=== PATIENT | male | born 1945 | race Caucasian/White ===

== ENCOUNTER 2017-06-15 16:56 | Emergency (ER) | payer MEDICARE, OTHER ==
[2014-08-17 08:10] VITALS: BMI 25.8
[~2017-06-15 16:56] MED LIST: HYDROCODONE-APA1 TAB PO; SAW PALMETTO450 MG PO
== END 2017-06-15 21:34 | disposition home or self-care (01) ==
LOC: D.ER 16:56
DX: S61.304A Unspecified open wound of right ring finger with damage to nail, initial encounter (principal); W29.8XXA Contact with other powered hand tools and household machinery, initial encounter; Y93.89 Activity, other specified; Y92.89 Other specified places as the place of occurrence of the external cause; M79.644 Pain in right finger(s)

== ENCOUNTER 2018-05-18 15:32 | Emergency (ER) | payer MEDICARE, OTHER ==
[~2018-05-18] VITALS: Ht 182.9 cm; Wt 87.3 kg
[2018-05-18 15:44] VITALS: Ht 182.9 cm; Wt 87.3 kg
[2018-05-18] MEDS ORDERED: NORCO 7.5/325 T1 TA1 PO (17:06)
[2018-05-18] MEDS ORDERED: KEFLEX500 MG PO (17:06)
[2018-05-18 17:55] VITALS: BP 149/84
== END 2018-05-18 17:56 | disposition home or self-care (01) ==
LOC: D.ER 15:32
DX: S61.011A Laceration without foreign body of right thumb without damage to nail, initial encounter (principal); W29.8XXA Contact with other powered hand tools and household machinery, initial encounter; Y93.89 Activity, other specified; Y92.019 Unspecified place in single-family (private) house as the place of occurrence of the external cause